=== PATIENT | female | born 1975 | race Caucasian/White ===

== ENCOUNTER 2017-06-30 14:26 | Inpatient (IN) | payer OTHER ==
[2017-06-30 18:39] VITALS: BMI 31.1
--- NOTE | 2017-06-30 20:54 | HP ---
CIWA Score - CIWA Score Nausea/Vomitin (vomiting x 2) Muscle Tremors: 4-Moderate,w/Arms Extend Anxiety: 3 Agitation: 2 Paroxysmal Sweats: 3 Orientation: 0-Oriented Tacttile Disturbances: 0-None Auditory Disturbances: 0-None Visual Disturbances: 0-None Headache: 4-Moderately Severe CIWA-Ar Total Score: 19 Admission ROS S - [facility] Chief Complaint: Alcohol withdrawal symptoms Allergies/Adverse Reactions: Allergies Allergy/AdvReac Type Severity Reaction Status Date / Time No Known Allergies Allergy Verified 06/30/17 19:02 History of Present Illness: 41 years old female with a long history of alcohol dependence is seeking admission to detox. Patient denies previous detox and significant period of abstinence. She has past medical history of HTN, fibromyalgia, anxiety, UTI and depression. Denies suicidal ideation at this time. This is patient's first detox experience and first admission to [facility]. Exam Limitations: No Limitations - Ebola screening Have you traveled outside of the country in the last 21 days: No Have you had contact with anyone from an Ebola affected area: No Have you been sick,other than usual withdrawal symptoms: No Do you have a fever: No - Review of Systems Constitutional: Chills, Loss of Appetite, Malaise, Changes in sleep, Weakness EENT: reports: No Symptoms Reported, Other (wears prescription glasses) Respiratory: reports: No Symptoms reported Cardiac: reports: No Symptoms Reported GI: reports: Diarrhea (x 4), Poor Appetite, Poor Fluid Intake, Vomiting (x 2), Abdominal cramping : reports: No Symptoms Reported Musculoskeletal: reports: Back Pain, Muscle Pain, Muscle Weakness Integumentary: reports: Flushing Neuro: reports: Headache, Tingling, Tremors Endocrine: reports: No Symptoms Reported Hematology: reports: No Symptoms Reported Psychiatric: reports: Mood/Affect Appropiate, Orientated x3, Agitated, Anxious, Depressed Other Systems: Reviewed and Negative Patient History - Patient Medical History Hx Anemia: No Hx Asthma: No Hx Chronic Obstructive Pulmonary Disease (COPD): No Hx Cardiac Disorders: No Hx Congestive Heart Failure: No Hx Hypertension: Yes (on meds) Hx Hypercholesterolemia: No Hx Pacemaker: No HX Cerebrovascular Accident: No Hx Seizures: No Hx Diabetes: No Hx Gastrointestinal Disorders: No Hx Liver Disease: No Hx Genitourinary Disorders: No Hx Sexually Transmitted Disorders: No Hx Renal Disease (ESRD): No Hx Thyroid Disease: No Hx Human Immunodeficiency Virus (HIV): No (Negative February 2017) Hx Hepatitis C: No Hx Depression: Yes Hx Suicide Attempt: No (Attempted suicide at 27 years. Denies suicidal ideation at this time) Hx Bipolar Disorder: No Hx Schizophrenia: No - Patient Surgical History Past Surgical History: Yes Hx Neurologic Surgery: No Hx Cataract Extraction: No Hx Cardiac Surgery: No Hx Lung Surgery: No Hx Breast Surgery: No Hx Breast Biopsy: No Hx Abdominal Surgery: Yes (Gastric bypass 2012) Hx Appendectomy: No Hx Cholecystectomy: Yes (February 2017) Hx Genitourinary Surgery: No Hx Section: No Hx Orthopedic Surgery: No Hx Hysterectomy: No Other Surgical History: TUBAL LIGATION- 16 YRS AGO, GASTRIC BYPASS Anesthesia Reaction: No - PPD History Previous Implant?: Yes Documented Results: Negative w/o proof Implanted On Prior R Admission?: No PPD to be Administered?: Yes - Reproductive History Patient is a Female of Child Bearing Age (11 -55 yrs old): Yes Last Menstrual Period: 06/22/17 Patient : No - Smoking Cessation Smoking history: Current every day smoker Have you smoked in the past 12 months: Yes Aproximately how many cigarettes per day: 4 Hx Chewing Tobacco Use: No Initiated information on smoking cessation: Yes 'Breaking Loose' booklet given: 06/30/17 - Substance & Tx. History Hx Alcohol Use: Yes Hx Substance Use: No Substance Use Type: Alcohol Hx Substance Use Treatment: No - Substances Abused Alcohol Route: Oral Frequency: Daily Amount used: beer- 2 six packs Age of first use: 20 Date of Last Use: 06/30/17 Family Disease History - Family Disease History Family Disease History: Heart Disease: Mother (HTN, HYPOTHYROIDISM), Other: Mother, Sister (HYPOTHYROIDISM) Admission Physical Exam BHS - Vital Signs Vital Signs: Vital Signs - 24 hr 06/30/17 18:22 Temperature 98.2 F Pulse Rate 119 H Respiratory 20 Rate Blood Pressure 153/101 - Physical General Appearance: Yes: Moderate Distress, Tremorous, Irritable, Sweating, Anxious HEENTM: Yes: EOMI, Normal Voice, ZAIDA Respiratory: Yes: Lungs Clear, Normal Breath Sounds, No Respiratory Distress Neck: Yes: Supple Breast: Yes: Breast Exam Deferred Cardiology: Yes: Tachycardia Abdominal: Yes: Within Normal Limits, Soft Genitourinary: Yes: Within Normal Limits Back: Yes: Within Normal Limits Musculoskeletal: Yes: Back pain, Muscle Pain, Muscle weakness Extremities: Yes: Tremors Neurological: Yes: Alert, Normal Mood/Affect, Normal Response Integumentary: Yes: Warm Lymphatic: Yes: Within Normal Limits - Diagnostic (1) Alcohol dependence with uncomplicated withdrawal Current Visit: Yes Status: Chronic (2) Fibromyalgia Current Visit: Yes Status: Chronic (3) Hypertension Current Visit: Yes Status: Chronic (4) Depression Current Visit: Yes Status: Chronic (5) Anxiety Current Visit: Yes Status: Chronic (6) Nicotine dependence Current Visit: Yes Status: Chronic BHS Breath Alcohol Content Breath Alcohol Content: 0.137 Urine Pregancy Test - Result Urine Test Results: Negative- NO Line Present Urine Drug Screen - Results Drug Screen Negative: No Urine Drug Screen Results: BZO-Benzodiazepines
[2017-06-30] MEDS ORDERED: MAGNESIUM HYDROX 2400MG/30ML ORAL SUSPENSION 30 ML CUP PO PRN (21:09)
[2017-06-30] MEDS ORDERED: guaiFENesin/D-METHORPHAN HB 10 ML UNIT-DOSE CUPS PO PRN (21:09)
[2017-06-30] MEDS ORDERED: MAG HYDROX/AL HYDROX/SIMETH 30 ML UNIT-DOSE CUP PO PRN (21:09)
[2017-06-30] MEDS ORDERED: MAGNESIUM CITRATE 300 ML BOTTLE PO PRN (21:09)
[2017-06-30] MEDS ORDERED: MENTHOL/PHENOL 1 EACH UD MM PRN (21:09)
[2017-06-30] MEDS ORDERED: ACETAMINOPHEN 325 MG TABLET (FP) PO PRN (21:09)
[2017-06-30] MEDS ORDERED: P-EPHED 60MG/TRIPROLIDI 2.5MG TABLET PO PRN (21:09)
[2017-06-30] MEDS ORDERED: LOPERAMIDE HCL 2 MG CAPSULE PO PRN (21:09)
[2017-06-30] MEDS ORDERED: chlordiazePOXIDE HCL 25 MG CAPSULE PO PRN (21:09)
[2017-06-30] MEDS ORDERED: IBUPROFEN 400 MG TABLET (FP) PO PRN (21:09)
[2017-06-30] MEDS: chlordiazePOXIDE HCL 25 MG CAPSULE PO SCH (22:24)
[2017-06-30] MEDS: THIAMINE HCL 100 MG TABLET (FP) PO SCH (22:24)
[2017-06-30] MEDS: PREGABALIN 100 MG CAPSULE PO SCH (22:24)
--- NOTE | 2017-06-30 23:54 | PN ---
[facility] Progress Note Note: received nurse called that the patient needs ppd
[2017-07-01] MEDS: chlordiazePOXIDE HCL 25 MG CAPSULE PO SCH ×4 (05:33→22:23)
[2017-07-01] MEDS: PRENATAL VITAMINS W/ FOLIC ACID TABLET (FP) PO SCH (10:22)
[2017-07-01] MEDS: amLODIPine BESYLATE 5 MG TABLET (FP) PO SCH (10:22)
[2017-07-01] MEDS: PREGABALIN 100 MG CAPSULE PO SCH ×2 (10:22→22:22)
[2017-07-01 10:23] LABS: HEMATOCRIT 37.9 % (32.4-45.2); MCH 29.1 pg (25.7-33.7); MCHC 31.6 g/dl (32.0-36.0); MEAN CELL VOLUME 92.1 fl (80-96); MEAN PLT VOLUME 7.9 fl (7.5-11.1); PLATELET COUNT 141 K/MM3 (134-434); RBC 4.11 M/mm3 (3.60-5.2); RDW 22.4 % (11.6-15.6); WHITE BLOOD COUNT 4.9 K/mm3 (4.0-10.0)
[2017-07-01 10:33] LABS: ALBUMIN 3.6 g/dl (3.4-5.0); ANION GAP 8 (8-16); BLOOD UREA NITROGEN 7 mg/dL (7-18); CALCIUM 8.2 mg/dL (8.5-10.1); CHLORIDE 102 mmol/L (98-107); CO2 28 mmol/L (21-32); GLUCOSE,RANDOM 70 mg/dL (74-106); POTASSIUM 3.7 mmol/L (3.5-5.1); SODIUM 138 mmol/L (136-145)
--- NOTE | 2017-07-01 10:35 | PN ---
S CIWA - CIWA Score Nausea/Vomitin Muscle Tremors: 2 Anxiety: 2 Agitation: 2 Paroxysmal Sweats: 3 Orientation: 0-Oriented Tacttile Disturbances: 1-Very Mild Itch/Numbness Auditory Disturbances: 0-None Visual Disturbances: 0-None Headache: 0-None Present CIWA-Ar Total Score: 13 BHS Progress Note (SOAP) Subjective: interrupted sleep, sweats, diarrhea Objective: 07/01/17 10:35 Vital Signs Temperature 98.2 F 07/01/17 07:13 Pulse Rate 96 H 07/01/17 07:13 Respiratory Rate 18 07/01/17 07:13 Blood Pressure 132/89 07/01/17 07:13 O2 Sat by Pulse Oximetry (%) Laboratory Tests 07/01/17 07:00 WBC 4.9 RBC 4.11 Hgb 12.0 Hct 37.9 MCV 92.1 MCH 29.1 MCHC 31.6 L RDW 22.4 H Plt Count 141 MPV 7.9 pt aox3 in nad ambulating Assessment: 07/01/17 10:39 withdrawal sx,s Plan: cont.detox increase fluids f/up pending labs
[2017-07-01 10:39] LABS: ALK PHOS 93 U/L (45-117); BILIRUBIN,TOTAL 0.9 mg/dL (0.2-1.0); CREATININE 0.6 mg/dL (0.55-1.02); SGOT/AST 57 U/L (15-37); SGPT/ALT 34 U/L (12-78); TOT PROT 7.3 g/dl (6.4-8.2)
--- NOTE | 2017-07-01 10:45 | EKG ---
Test Reason : Blood Pressure : / mmHG Vent. Rate : 106 BPM Atrial Rate : 106 BPM P-R Int : 132 ms QRS Dur : 064 ms QT Int : 370 ms P-R-T Axes : 059 032 038 degrees QTc Int : 491 ms SINUS TACHYCARDIA OTHERWISE NORMAL ECG NO PREVIOUS ECGS AVAILABLE Confirmed by KIRA POOLE, OBDULIA ([id number]) on 07/01/2017 10:44:43 AM Referred By: Confirmed By:OBDULIA MALONE MD
[2017-07-01] MEDS: LOSARTAN POTASSIUM 25 MG TABLET PO SCH (11:19)
--- NOTE | 2017-07-01 14:45 | CONSULT ---
[facility] Psychiatric Consult - Data Date of interview: 07/01/17 Admission source: [facility] Identifying data: Pt. is a 41 year old female, mother of four, , and currently unemployed. This is patient's first admission to [facility]. Pt. admitted to for alcohol dependence. Substance Abuse History: - Smoking Cessation. Smoking history: Current every day smoker. Have you smoked in the past 12 months: Yes. Aproximately how many cigarettes per day: 4. Hx Chewing Tobacco Use: No. Initiated information on smoking cessation: Yes. 'Breaking Loose' booklet given: 06/30/17. - Substance & Tx. History. Hx Alcohol Use: Yes. Hx Substance Use: No. Substance Use Type : Alcohol. Hx Substance Use Treatment: No. - Substances Abused. Alcohol. Route: Oral. Frequency: Daily. Amount used: beer- 2 six packs. Age of first use: 20. Date of Last Use: 06/30/17 Medical History: Hypertension, cholecystectomy Psychiatric History: Pt. denies h/o psychiatric hospitalizations. Denies OPC. Reports seeing a psychiatrist three years ago, was prescribed doxepin and trazodone, and diagnosed with MDD and anxiety. Pt. has not taken any psychotrophic medications in several years. Reports one suicide attempt 25 years ago by cutting her left wrist. Stated the cuts were superfical and she did not need medical attention. Physical/Sexual Abuse/Trauma History: Denies. Mental Status Exam - Mental Status Exam Alert and Oriented to: Time, Place Cognitive Function: Good Patient Appearance: Well Groomed Mood: Euthymic Affect: Normal Range Patient Behavior: Cooperative Speech Pattern: Appropriate Voice Loudness: Normal Thought Process: Goal Oriented Thought Disorder: Not Present Hallucinations: Denies Suicidal Ideation: Denies Homicidal Ideation: Denies Insight/Judgement: Poor Sleep: Poorly Appetite: Fair Muscle strength/Tone: Normal Gait/Station: Normal Psychiatric Findings - Problem List ([place] 1, 2,3) (1) Alcohol dependence with uncomplicated withdrawal Current Visit: Yes Status: Acute (2) MDD (major depressive disorder) Current Visit: No Status: Suspected (3) Nicotine dependence Current Visit: Yes Status: Chronic - Initial Treatment Plan Initial Treatment Plan: Psychoeducation provided. Detoxification in progress. Ambien 10mg qhs PRN ordered. Pt. reports favorable effect from previously taking ambien. Benefits and side effects (sleep walking). Verbal consent given. Will continue to monitor.
[2017-07-01] MEDS: THIAMINE HCL 100 MG TABLET (FP) PO SCH (22:23)
[2017-07-01] MEDS: ZOLPIDEM TARTRATE 10 MG TABLET (PARK CARE ONLY) PO PRN (22:24)
[2017-07-02] MEDS: chlordiazePOXIDE HCL 25 MG CAPSULE PO SCH ×3 (05:26→17:52)
[2017-07-02] MEDS: PREGABALIN 100 MG CAPSULE PO SCH ×2 (10:20→22:21)
[2017-07-02] MEDS: PRENATAL VITAMINS W/ FOLIC ACID TABLET (FP) PO SCH (10:20)
[2017-07-02] MEDS: amLODIPine BESYLATE 5 MG TABLET (FP) PO SCH (10:20)
[2017-07-02] MEDS: LOSARTAN POTASSIUM 25 MG TABLET PO SCH (10:21)
[2017-07-02 10:36] LABS: URINE APPEARANCE CLEAR; URINE BILIRUBIN NEGATIVE (NEGATIVE); URINE BLOOD NEGATIVE (NEGATIVE); URINE COLOR LTYELLOW; URINE GLUCOSE (UA) NEGATIVE (NEGATIVE); URINE KETONE NEGATIVE (NEGATIVE); URINE LEUK ESTERASE NEGATIVE (NEGATIVE); URINE NITRITE POSITIVE (NEGATIVE); URINE PROTEIN NEGATIVE (NEGATIVE); URINE UROBILINOGEN NEGATIVE mg/dL (0.2-1.0)
--- NOTE | 2017-07-02 10:58 | PN ---
S CIWA - CIWA Score Nausea/Vomitin-No Nausea/No Vomiting Muscle Tremors: 4-Moderate,w/Arms Extend Anxiety: 3 Agitation: 3 Paroxysmal Sweats: 3 Orientation: 0-Oriented Tacttile Disturbances: 0-None Auditory Disturbances: 0-None Visual Disturbances: 0-None Headache: 1-Very Mild CIWA-Ar Total Score: 14 BHS Progress Note (SOAP) Subjective: sweats shakes interrupted sleep body aches Objective: 07/02/17 10:57 Vital Signs Temperature 97.5 F L 07/02/17 09:17 Pulse Rate 114 H 07/02/17 09:17 Respiratory Rate 18 07/02/17 09:17 Blood Pressure 112/71 07/02/17 09:17 O2 Sat by Pulse Oximetry (%) Laboratory Tests 06/30/17 07/01/17 07/01/17 07:00 07:00 07:00 WBC 4.9 RBC 4.11 Hgb 12.0 Hct 37.9 MCV 92.1 MCH 29.1 MCHC 31.6 L RDW 22.4 H Plt Count 141 MPV 7.9 Sodium 138 Potassium 3.7 Chloride 102 Carbon Dioxide 28 Anion Gap 8 BUN 7 Creatinine 0.6 Creat Clearance w eGFR > 60 Random Glucose 70 L Calcium 8.2 L Total Bilirubin 0.9 AST 57 H ALT 34 Alkaline Phosphatase 93 Total Protein 7.3 Albumin 3.6 RPR Titer Hepatitis C Antibody <0.1 07/01/17 07:00 WBC RBC Hgb Hct MCV MCH MCHC RDW Plt Count MPV Sodium Potassium Chloride Carbon Dioxide Anion Gap BUN Creatinine Creat Clearance w eGFR Random Glucose Calcium Total Bilirubin AST ALT Alkaline Phosphatase Total Protein Albumin RPR Titer Nonreactive Hepatitis C Antibody aaox3 ambulating no acute distress Assessment: 07/02/17 10:58 withdrawal sx Plan: continue detox increase fluids
[2017-07-02 12:55] LABS: EPI CELLS RARE /HPF (FEW); URINE BACTERIA RARE /hpf (NONE SEEN)
[2017-07-02] MEDS: THIAMINE HCL 100 MG TABLET (FP) PO SCH (22:21)
[2017-07-02] MEDS: chlordiazePOXIDE 5 MG CAPSULE PO SCH (22:21)
[2017-07-02] MEDS: ZOLPIDEM TARTRATE 10 MG TABLET (PARK CARE ONLY) PO PRN (22:21)
[2017-07-03] MEDS: chlordiazePOXIDE 5 MG CAPSULE PO SCH ×3 (06:29→17:31)
[2017-07-03] MEDS: amLODIPine BESYLATE 5 MG TABLET (FP) PO SCH (10:17)
[2017-07-03] MEDS: LOSARTAN POTASSIUM 25 MG TABLET PO SCH (10:17)
[2017-07-03] MEDS: PREGABALIN 100 MG CAPSULE PO SCH ×2 (10:17→22:27)
[2017-07-03] MEDS: PRENATAL VITAMINS W/ FOLIC ACID TABLET (FP) PO SCH (10:17)
--- NOTE | 2017-07-03 10:46 | PN ---
BHS Progress Note (SOAP) Subjective: feeling better some interrupted sleep. Objective: 07/03/17 10:45 Vital Signs Temperature 97.9 F 07/03/17 06:41 Pulse Rate 88 07/03/17 06:41 Respiratory Rate 18 07/03/17 06:41 Blood Pressure 117/76 07/03/17 06:41 O2 Sat by Pulse Oximetry (%) Laboratory Tests 06/30/17 07/01/17 07/01/17 07:00 07:00 07:00 WBC 4.9 RBC 4.11 Hgb 12.0 Hct 37.9 MCV 92.1 MCH 29.1 MCHC 31.6 L RDW 22.4 H Plt Count 141 MPV 7.9 Sodium 138 Potassium 3.7 Chloride 102 Carbon Dioxide 28 Anion Gap 8 BUN 7 Creatinine 0.6 Creat Clearance w eGFR > 60 Random Glucose 70 L Calcium 8.2 L Total Bilirubin 0.9 AST 57 H ALT 34 Alkaline Phosphatase 93 Total Protein 7.3 Albumin 3.6 Urine Color Urine Appearance Urine pH Ur Specific [place] Urine Protein Urine Glucose (UA) Urine Ketones Urine Blood Urine Nitrite Urine Bilirubin Urine Urobilinogen Ur Leukocyte Esterase Urine WBC (Auto) Urine RBC (Auto) Ur Epithelial Cells Urine Bacteria RPR Titer Hepatitis C Antibody <0.1 07/01/17 07/02/17 07:00 07:00 WBC RBC Hgb Hct MCV MCH MCHC RDW Plt Count MPV Sodium Potassium Chloride Carbon Dioxide Anion Gap BUN Creatinine Creat Clearance w eGFR Random Glucose Calcium Total Bilirubin AST ALT Alkaline Phosphatase Total Protein Albumin Urine Color Ltyellow Urine Appearance Clear Urine pH 6.0 Ur Specific [place] 1.005 Urine Protein Negative Urine Glucose (UA) Negative Urine Ketones Negative Urine Blood Negative Urine Nitrite Positive Urine Bilirubin Negative Urine Urobilinogen Negative Ur Leukocyte Esterase Negative Urine WBC (Auto) 1 Urine RBC (Auto) <1 Ur Epithelial Cells Rare Urine Bacteria Rare RPR Titer Nonreactive Hepatitis C Antibody pt aox3 in nad ambulating well Assessment: 07/03/17 10:45 withdrawal sx's Plan: cont detox increase fluids d/c in am
[2017-07-03] MEDS: chlordiazePOXIDE HCL 10 MG CAPSULE PO SCH (22:27)
[2017-07-03] MEDS: THIAMINE HCL 100 MG TABLET (FP) PO SCH (22:27)
[2017-07-03] MEDS: ZOLPIDEM TARTRATE 10 MG TABLET (PARK CARE ONLY) PO PRN (22:28)
[2017-07-04] MEDS: chlordiazePOXIDE HCL 10 MG CAPSULE PO SCH (05:37)
[2017-07-04 06:11] VITALS: BP 108/67; PULSE 85; TEMP 98.6
[2017-07-04] MEDS: PRENATAL VITAMINS W/ FOLIC ACID TABLET (FP) PO SCH (09:25)
[2017-07-04] MEDS: amLODIPine BESYLATE 5 MG TABLET (FP) PO SCH (09:25)
[2017-07-04] MEDS: PREGABALIN 100 MG CAPSULE PO SCH (09:26)
--- NOTE | 2017-07-04 10:41 | DS ---
[facility] Detox Discharge Summary Admission Date: 06/30/17 Discharge Date: 07/04/17 - History Present History: Alcohol Dependence Pertinent Past History: Fibromyalgia - Physical Exam Results Vital Signs: Vital Signs Temperature 98.6 F 07/04/17 06:10 Pulse Rate 85 07/04/17 06:10 Respiratory Rate 18 07/04/17 06:10 Blood Pressure 108/67 07/04/17 06:10 O2 Sat by Pulse Oximetry (%) Pertinent Admission Physical Exam Findings: withdrawal symptoms - Treatment Hospital Course: Detox Protocol Followed, Detoxed Safely, Responded well, Discharged Condition Good, Rehab Referral Accepted Patient has Accepted a Rehab Referral to: Patient to follow up with referral to [facility] and continue self help groups - Medication Discharge Medications: Ambulatory Orders Amlodipine Besylate [Norvasc -] 5 mg PO DAILY 06/30/17 Losartan Potassium [Cozaar -] 25 mg PO DAILY 06/30/17 Pregabalin [Lyrica -] 200 mg PO BID 06/30/17 Trazodone HCl [Desyrel -] 150 mg PO HS 06/30/17 Zolpidem Tartrate [Ambien] 10 mg PO HS 06/30/17
== END 2017-07-04 09:32 | disposition home or self-care (01) | DRG 775 ==
LOC: YASAS 14:26 → Y6N 19:01
PROVIDERS: ADMIT Internal Medicine; ATTEND Internal Medicine
PROC: HZ2ZZZZ Detoxification Services for Substance Abuse Treatment (ICD-10-PCS; principal; 2017-06-30)
DX: F10.230 Alcohol dependence with withdrawal, uncomplicated (principal); F17.210 Nicotine dependence, cigarettes, uncomplicated; F41.9 Anxiety disorder, unspecified; F33.9 Major depressive disorder, recurrent, unspecified; I10 Essential (primary) hypertension; R00.0 Tachycardia, unspecified; M79.7 Fibromyalgia; Z98.84 Bariatric surgery status; Z91.5 Personal history of self-harm
CPT/HCPCS: 36415; 80053; 81003; 81015; 85027; 86593; 86803; 93005; 93010